=== PATIENT | female | born 1960 | race Caucasian/White ===

== ENCOUNTER 2017-06-29 10:25 | Emergency (ER) | payer OTHER ==
[~2017-06-29] VITALS: Ht 157.5 cm; Wt 87.5 kg
[~2017-06-29 10:25] MED LIST: ATEN-51 PO; CHOL10009 PO; FOLI-49 PO; HYDR1TAB PO; HYDR200T5 PO; METH2.5T33 PO; MULT1TAB59 PO; SIMV20TA2 PO; [UNRECOGNIZED DRUG - CODE] PO; [UNRECOGNIZED DRUG - CODE] SC
[2017-06-29 10:27] VITALS: Ht 157.5 cm; Wt 87.5 kg
--- NOTE | 2017-06-29 10:57 | ERD ---
ER Documentation Chief Complaint Date/Time DATE: 06/29/17 TIME: 10:53 Chief Complaint pt bib family with c/o right leg pain and swelling , " bite " on leg HPI This is a 56-year-old female that presents to the ER complaining of a bug bite to her right leg. Patient states that this happened on . Since then area has gotten more red, swollen and warm to the touch. Patient complains of pain to the area. Patient denies any numbness, tingling or weakness of her lower extremity. She has not had any fevers or chills. Patient states that she got bitten by a spider in the past and that she had to be admitted for IV antibiotics secondary to poor healing. ROS 12 point review of systems was done, all negative except per HPI. Medications Home Meds Reported Medications Cholecalciferol (Vitamin D3) 1,000 Unit Capsule, PO DAILY 05/07/12 Triamterene/Hydrochlorothiazid (Triamterene-Hctz 75-50 Tab) 1 Tab Tablet, PO DAILY 05/07/12 Simvastatin (Simvastatin) 20 Mg Tablet, PO HS 05/07/12 Methotrexate Sodium (Methotrexate) 2.5 Mg Tablet, PO WEEKLY 05/07/12 Multivitamins* (Multivitamins*) 1 Tab Tablet, PO DAILY 05/07/12 Hydroxychloroquine Sulfate* (Plaquenil*) 200 Mg Tab, PO BID 05/07/12 Hydrocodone Bit/Acetaminophen (Hydrocodone/Apap 5/500 Tab) 1 Tab Tablet, PO Q8 05/07/12 Folic Acid* (Folic Acid*) 1 Mg Tablet, PO DAILY 05/07/12 Etanercept (Enbrel) 50 Mg/Ml Soln, SC WEEKLY 05/07/12 Atenolol* (Atenolol*) 25 Mg Tablet, PO DAILY 05/07/12 Allergies Allergies: Coded Allergies: Iodine (Verified Allergy, Intermediate, SWELLING, 05/07/12) PMhx/Soc History of Surgery: Yes (HYSTERECTOMY) Anesthesia Reaction: No Hx Neurological Disorder: Yes (STROKE 8 YRS AGO) Hx Respiratory Disorders: No Hx Cardiac Disorders: Yes (HTN) Hx Psychiatric Problems: No Hx Miscellaneous Medical Probl: No Hx Alcohol Use: Yes Hx Substance Use: No Hx Tobacco Use: No Physical Exam Vitals Vital Signs Date Time Temp Pulse Resp B/P Pulse Ox O2 Delivery O2 Flow Rate FiO2 06/29/17 10:27 98.7 68 16 168/85 98 Physical Exam GENERAL: The patient is well developed and appropriate for usual state of health , in no apparent distress. HEENT: Atraumatic. CHEST: Clear to auscultation bilaterally. There are no rales, wheezes or rhonchi. HEART: Regular rate and rhythm. No murmurs, clicks, rubs or gallops. EXTREMITIES: Equal pulses bilaterally. There is no peripheral clubbing, cyanosis or edema. No focal swelling or erythema. Full range of motion. Grossly neurovascularly intact. NEURO: Alert and oriented. SKIN: There is a bite to the right leg near the medial side of the knee. There is a surrounding area of erythema, swelling and warmth to the touch. Patient however has full range of motion of her knee without any pain or limitation. Results 24 hrs Current Medications Medications (Trade) Dose Ordered Sig/Olinda Route PRN Reason Start Time Stop Time Status Last Admin Dose Admin Ceftriaxone Sodium (Rocephin) 1 gm ONCE ONCE IM 06/29/17 11:00 06/29/17 11:01 Lidocaine (Xylocaine 2% (Mdv) 20 ml) 20 ml ONCE ONCE INJ 06/29/17 11:00 06/29/17 11:01 Procedures/MDM Differential Diagnosis: dermatitis, allergic urticaria, viral exanthem, insect bite, fungal infection ,viral exanthem, hand foot mouth disease, , impetigo, cellulitis, abscess, ben malena syndrome, meningocemia, necrotizing fasciitis, myositis. Patient does appear to have an infected bug bite with surrounding cellulitis. Patient was given a shot of Rocephin here in the ER without any complications. She will be sent home with Bactrim and Keflex. At this time patient is afebrile and well-appearing, there is no lymphatic streaking to indicate severe infection. Patient was indicated to follow-up with her primary care doctor on Saturday or to return to ER sooner if symptoms worsen. My medical decision making shared with the patient and her they understand and agree with plan. Departure Diagnosis: Primary Impression: Infected bite wound Condition: Stable KAREEN BHANDARI Jun 29, 2017 10:57
[2017-06-29] MEDS ORDERED: LIDOCAINE 2% (MDV) 20 ML INJ INJ ONE (11:00)
[2017-06-29] MEDS ORDERED: CEFTRIAXONE 1 GM INJ IM ONE (11:00)
[2017-06-29] MEDS ORDERED: SULF1TAB31 PO (11:00)
[2017-06-29] MEDS ORDERED: CEPH-443 PO (11:00)
== END 2017-06-29 11:21 | disposition home or self-care (01) ==
LOC: FTE 10:25
DX: S80.261A Insect bite (nonvenomous), right knee, initial encounter (principal); I10 Essential (primary) hypertension; W57.XXXA Bitten or stung by nonvenomous insect and other nonvenomous arthropods, initial encounter; Y92.9 Unspecified place or not applicable
CPT/HCPCS: 96372; 99284; J0696